=== PATIENT | female | born 1955 | race Caucasian/White ===

== ENCOUNTER 2016-12-04 10:26 | Inpatient (IN) | payer MEDICARE ==
--- NOTE | ~2016-12-04 | PREOPHP ---
PreOp History and Physical [address] [place]. [address] NAME: MAYRA PIERCE : 59 STATUS : DIS IN PAT#: [id number] AGE: 61 ADM/REG DATE : 12/04/16 MR#: [id number] REPORT SERV DATE: 12/15/16 DICTATED BY: TRISTAN BUCK DATE: 12/15/16 REPORT STATUS : Draft TRANSCRIBED BY: SHIRLEY DATE: 12/15/16 CHIEF COMPLAINT: Right hip pain. HISTORY: This is a 61-year-old female, said she caught her left foot, tripped and injured her right hip. She denies pain or injury elsewhere. No associated loss of consciousness, shortness of breath, chest pain, etc. ALLERGIES: PENTAZOCINE, NITROFURANTOIN, AMBIEN, PENICILLIN, SULFA, DOXYCYCLINE, ERYTHROMYCIN. MEDICATIONS: See chart. PAST MEDICAL HISTORY: Migraines, hearing loss, dysrhythmias, hiatal hernia, menopause, depression, arthritis, fibromyalgia, osteoporosis, asthma, history of MVP, murmur. PAST SURGICAL HISTORY: Pacemaker at [place], right ear tube in 1999, left nasal surgery x2 in the , right carpal tunnel x2 in the , tonsils and adenoids at age 32, right breast biopsy in the . SOCIAL HISTORY: No cigarettes, alcohol, or illicit drug use. FAMILY HISTORY: No anesthetic complications. REVIEW OF SYSTEMS: Otherwise negative. PHYSICAL EXAMINATION: GENERAL: Alert and oriented x3, in no apparent distress. HEENT: Atraumatic, normocephalic. NECK: Supple. CHEST: Symmetric, nontender. LUNGS: Per AA evaluation. CV: Regular. ABDOMEN: Soft. No mass. EXTREMITIES: Decreased range of motion. Shortened and externally rotated right hip. Skin is intact. Compartment supple. 2+ pulses. NEURO: Sensorimotor without deficit. X-RAY: Displaced right femoral neck fracture with comminution. ASSESSMENT: Right femoral neck fracture, comminuted and varus displaced. PLAN: Right total hip arthroplasty. Risks, benefits, etc. explained. The patient wishes to proceed. PreOp History and Physical [address] [address] NAME: MAYRA PIERCE : 59 STATUS : DIS IN PAT#: [id number] AGE: 61 ADM/REG DATE : 12/04/16 MR#: [id number] REPORT SERV DATE: 12/15/16 DICTATED BY: TRISTAN BUCK DATE: 12/15/16 REPORT STATUS : Draft TRANSCRIBED BY: SHIRLEY DATE: 12/15/16 WTB/MODL Tanya Buck M.D. / [id number] CC: Hemant Breen M.D.
--- NOTE | ~2016-12-04 | DS ---
Discharge Summary [place] [id number] [facility] [place]. [address] NAME: MAYRA PIERCE : 59 STATUS : DIS IN [facility]#: [id number] AGE: 61 ADM/REG DATE : 12/04/16 MR#: [id number] REPORT SERV DATE: 12/16/16 DICTATED BY: TRISTAN BUCK DATE: 12/15/16 REPORT STATUS : Draft TRANSCRIBED BY: MODL DATE: 12/15/16 ADMISSION DATE: 12/04/2016 DISCHARGE DATE: 12/08/2016 DIAGNOSIS: Right hip displaced femoral neck fracture. HOSPITAL COURSE: The patient tolerated the procedure well. Was admitted by the myself and the [employer]ING [employer] AD[employer]ER. She progressed in physical therapy to become independent. She was asymptomatic with her postoperative anemia. She became independent with physical therapy and was discharged home with home health. DISPOSITION: Home. DISCHARGE DIET: General. FOLLOWUP: Follow up in 2 weeks. ACTIVITY: Weight bearing as tolerated. WTB/MODL Tanya Buck M.D. / [id number] CC: Hemant Breen M.D.
--- NOTE | ~2016-12-04 | OP ---
Record Of Operation [facility] [address] [place]. [address] NAME: MAYRA PIERCE : 59 STATUS : ADM IN PAT#: [id number] AGE: 61 ADM/REG DATE : 12/04/16 MR#: [id number] REPORT SERV DATE: 12/05/16 DICTATED BY: TRISTAN BUCK DATE: 12/04/16 REPORT STATUS : Draft TRANSCRIBED BY: MODL DATE: 12/04/16 DATE OF PROCEDURE: 12/04/2016 PREOPERATIVE DIAGNOSIS: Severe right hip degenerative joint disease. POSTOPERATIVE DIAGNOSIS: Severe right hip degenerative joint disease. PROCEDURE: Uncemented total hip arthroplasty, Tri-Lock. SIDE: Right. ANESTHESIA: See chart. SIZE: See chart. ESTIMATED BLOOD LOSS: About 100 mL. PROCEDURE: The patient was taken to the operating room and placed supine on the table without incident. Anesthetic was induced per the anesthesiologist. A Francis catheter was placed by the nurse in the standard sterile technique. The correct side for the procedure was identified by preoperative markings and matched with the consent form. All personnel in the room were in agreement regarding the procedure, patient, and side. The patient was then carefully positioned and carefully padded and prepped and draped in the normal sterile fashion. The patient received prophylactic preoperative antibiotics at the appropriate time. The preoperative x-ray was brought up on the monitor. Again, this was reviewed with the staff in the room. According with the preoperative plan, and angled, an anterolateral incision was made centered over the trochanter extending from proximal posterior to distal anterior. Electrocautery was used to maintain meticulous hemostasis. The IT band was split in line with its fibers. A Charnley retractor was placed over saline moistened laps. A standard anterolateral approach to the hip was carried out dissecting in line with the vastus medialis fibers lifting the inferior 20% of the vastus medialis, proximally the interior 20% of the gluteus medius and gluteus minimus tendons off the anterior capsule. Periosteal elevator was used to elevate soft tissue gently directly off the proximal anterior femoral bone. Appropriate retractors were carefully placed. Complete anterior capsulectomy was performed. The hip was then carefully dislocated with a combination of traction maneuver by the emergency medicine physician assistant and scooping the ball out of the socket with a Hohmann. A femoral neck osteotomy was marked according to what had been preoperatively planned with a broach as a template. The distance for the femoral neck osteotomy was measured with a ruler. A femoral neck osteotomy was made with an oscillating saw under appropriate retraction. Meticulous hemostasis was again obtained. The leg was then brought up out of the anterior bag and positioned with the lower extremity in external rotation and slight flexion. Acetabular retractors were placed carefully palpating to be sure that they were directly on the bone. The acetabular labrum was excised with electrocautery and rongeur. Pulvinar fat was removed with a large curette and rongeur and again meticulous hemostasis was obtained. Sequential Record Of Operation [facility] [address] [place]. [address] NAME: MAYRA PIERCE : 59 STATUS : ADM IN [facility]#: [id number] AGE: 61 ADM/REG DATE : 12/04/16 MR#: [id number] REPORT SERV DATE: 12/05/16 DICTATED BY: TRISTAN BUCK DATE: 12/04/16 REPORT STATUS : Draft TRANSCRIBED BY: SHIRLEY DATE: 12/04/16 reamers were used in the acetabulum to 1 mm. less than the final size which was chosen. This was felt to give excellent interference fit. The acetabular fossa was then copiously irrigated with pulsatile lavage and actual acetabular component was placed and impacted and checked to make sure it was down snug. The overall alignment was checked. The acetabular spinning frame changer was then removed. Screws were placed in the standard fashion. A drill, depth gauge and self tapping screw placement taking care not to plunge as the drill holes were carefully placed. A trial liner was then placed and attention directed back to the proximal femur. The leg was placed back into the anterior bag. The proximal femur was prepared using a box chisel following by a T-handled reamer to determine the intramedullary alignment. This was followed by sequential broaches up to the final broach. Once it was seated in the appropriate position, a Calcar reamer was used to plane the proximal femur. Trial reduction was then done with a trial prosthetic ball and neck. A straight edge was used to compare the tip of the trochanter to center of the ball relationship to what had been noted on the preoperative x-ray. Careful reduction was then done of the total hip. Palpation was done to ascertain and compare leg lengths by palpating the nonoperative leg and also by checking soft tissue tension. The stability of the hip was checked in full extension with full external rotation and in full flexion with adduction, flexion and internal rotation. The hip was then redislocated with a bone hook. The femoral trial and femoral broach were removed. The acetabulum was then prepared under appropriate retraction by removing the trial liner. A central hole eliminator was placed and tightened. The shell was irrigated out. The actual insert was placed and impacted and then checked to be sure it was down snug with a joker. The leg was again positioned in the bag. The proximal femur exposed, irrigated and the actual thermal prosthesis was taken from the motor vehicle representative and impacted. Once it was down, the trunnion was cleansed with a wet and dry lap and the prosthetic thermal head was placed and impacted and checked to be sure it was down snug. The acetabulum was irrigated and reduction was obtained. Again, we checked soft tissue tension, leg length and stability as described above. The hip was closed in a layered fashion with a 5 mm. Mersilene tape placed through a single drill hole in the proximal anterior/superior trochanter reattaching the gluteus medius and minimus fibers. The vastus lateralis, gluteus medius, and gluteus minimus were then closed in a sleeve. Drain was placed between the vastus and the IT band exiting distally anteriorly. The IT band was closed. Subcutaneous closure and skin closure were then obtained. A sterile dressing was applied. The patient was carefully positioned into a supine position and then awakened. The patient was then carefully transferred to the stretcher to be returned to the postoperative care unit without incident. COMPLICATION: None. SPECIMENS: Right femoral head. WTB/MODL Tanya Busby Record Of Operation [facility] [address] [place]. [address] NAME: MAYRA PIERCE : 59 STATUS : ADM IN [facility]#: [id number] AGE: 61 ADM/REG DATE : 12/04/16 MR#: [id number] REPORT SERV DATE: 12/05/16 DICTATED BY: TRISTAN BUCK DATE: 12/04/16 REPORT STATUS : Draft TRANSCRIBED BY: AARONL DATE: 12/04/16 Hemant Buck / [id number] CC: Hemant Breen M.D.
[~2016-12-04 10:26] MED LIST: ADVAIR250 INH; ALLEGRA; CLARIT10 PO; COMBIVENT INH; DITRO5 PO; HARD NAILS OR; LORTAB10 PO; MAGOX4 PO; OS500+D PO; OSTEO BI FLEX PO; PREV30 PO; PROAIR HFA INH; PROZAC40 MG PO; TRAZ100 PO; VITAMIN D31000 UNIT PO; VITC500 PO; ZANAFLEX 4 MG TA4 MG PO
[2016-12-04 10:59] LABS: BASOPHILS 0.4 %; BASOPHILS ABSOLUTE 0.02 10/3/uL (0.0-0.16); EOSINOPHILS 1.5 %; EOSINOPHILS ABSOLUTE 0.08 10/3/uL (0.0-0.53); ER CBC TAT 0 Hrs 05 Mins; HEMOGLOBIN 12.3 g/dL (12.0-16.0); IMMATURE GRANULOCYTES 0.4 %; IMMATURE GRANULOCYTES ABSOLUTE 0.02 10/3/uL (0.0-0.11); LYMPHOCYTES 18.2 %; LYMPHOCYTES ABSOLUTE 0.98 10/3/uL (0.67-4.30); MANUAL DIFF NO %; MEAN CORPUS HGB CONC 33.2 g/dL (32.0-36.0); MEAN CORPUSCULAR HEMOGLOB 31.7 pg (26.0-34.0); MEAN CORPUSCULAR VOLUME 95.4 fL (80-100); MEAN PLATELET VOLUME 10.5 fL (9.2-13.0); MONOCYTES 6.7 %; MONOCYTES ABSOLUTE 0.36 10/3/uL (0.21-1.20); NEUTROPHILS 72.8 %; NEUTROPHILS ABSOLUTE 3.93 10/3/uL (2.02-8.40); PLATELET COUNT 182 10/3/uL (150-400); RBC DISTRIBUTION WIDTH 12.6 % (12.0-16.0); RED CELL COUNT 3.88 10/6/uL (4.0-5.6); WHITE BLOOD CELLS 5.4 10/3/uL (4.5-10.5)
[2016-12-04 11:06] LABS: PARTIAL THROMBO TIME 25.7 SEC (22.5-37.2); PROTIME (NOT ORD) 13.1 SEC (12.0-14.5)
[2016-12-04 11:10] LABS: CALCIUM, SERUM 8.6 MG/DL (8.5-10.4); CHLORIDE, SERUM 108 MMOL/L (96-112); CO2 (CARBON DIOXIDE) 28 MMOL/L (24-34); CREATININE 1.04 MG/DL (0.55-1.02); GFR AFRICAN AMERICAN 68 ML/MIN (>=60); GFR NON AFRICAN AMERICAN 59 ML/MIN (>=60); GLUCOSE, SERUM 75 MG/DL (60-99); POTASSIUM, SERUM 4.2 MMOL/L (3.5-5.3); SODIUM, SERUM 143 MMOL/L (135-148)
[2016-12-04 11:12] LABS: BUN (BLOOD UREA NITROGEN) 23 MG/DL (6-23)
[2016-12-04] MEDS ORDERED: [UNRECOGNIZED DRUG - REMARK] PO (11:33)
[2016-12-04] MEDS ORDERED: VITAMIN D2000 UNIT PO (11:33)
[2016-12-04] MEDS ORDERED: BOTOX100 UNIT IM (11:34)
[2016-12-04] MEDS ORDERED: SINGULAIR1 PO (11:34)
[2016-12-04] MEDS ORDERED: AMIT10 PO (11:35)
[2016-12-04] MEDS ORDERED: ZANAFLEX 4 MG TA4 MG PO (11:35)
[2016-12-04] MEDS ORDERED: DITRO5 PO (11:35)
[2016-12-04] MEDS ORDERED: TRAZ100 PO (11:35)
[2016-12-04] MEDS ORDERED: NORCO1 TAB PO (11:36)
[2016-12-04] MEDS ORDERED: PEPCID40 MG PO (11:36)
[2016-12-04] MEDS ORDERED: PROZAC PO (11:36)
[2016-12-04] MEDS ORDERED: ADVAIR INH (11:37)
[2016-12-04] MEDS ORDERED: COMBIVENT RESPIM4 GM INH (11:37)
[2016-12-04 12:10] LABS: ASCORBIC ACID (UR NOT ORDER) NEG (NEG); BILIRUBIN, URINE NEGATIVE (NEG); ER URINALYSIS TAT 0 Hrs 11 Mins; KETONE, URINE NEGATIVE (NEG); LEUKOCYTE ESTERASE(NOT OR NEG (NEG); NITRITE (URINE) NEG (NEG); WBC (NOT ORDERED) (RFLEX) < 1 (0-5)
[2016-12-05 05:58] LABS: HEMOGLOBIN 9.9 g/dL (12.0-16.0)
[2016-12-05 05:59] LABS: HEMATOCRIT 29.7 % (36.0-48.0)
[2016-12-05 06:07] LABS: INTERNATIONAL NORMAL RATI 1.2 UNITS (-); PROTIME (NOT ORD) 15.1 SEC (12.0-14.5)
[2016-12-05 06:15] LABS: CALCIUM, SERUM 8.3 MG/DL (8.5-10.4); CHLORIDE, SERUM 105 MMOL/L (96-112); CO2 (CARBON DIOXIDE) 27 MMOL/L (24-34); CREATININE 0.96 MG/DL (0.55-1.02); GFR AFRICAN AMERICAN 75 ML/MIN (>=60); GFR NON AFRICAN AMERICAN 65 ML/MIN (>=60); POTASSIUM, SERUM 4.6 MMOL/L (3.5-5.3); SODIUM, SERUM 141 MMOL/L (135-148)
[2016-12-05 06:16] LABS: BUN (BLOOD UREA NITROGEN) 15 MG/DL (6-23); GLUCOSE, SERUM 136 MG/DL (60-99)
[2016-12-06 05:34] LABS: HEMATOCRIT 28.1 % (36.0-48.0); HEMOGLOBIN 9.3 g/dL (12.0-16.0)
[2016-12-06 05:35] LABS: INTERNATIONAL NORMAL RATI 2.5 UNITS (-)
[2016-12-06 05:37] LABS: PROTIME (NOT ORD) 27.1 SEC (12.0-14.5)
[2016-12-07 05:04] LABS: HEMOGLOBIN 8.3 g/dL (12.0-16.0)
[2016-12-07 05:12] LABS: HEMATOCRIT 25.2 % (36.0-48.0)
[2016-12-07 05:26] LABS: INTERNATIONAL NORMAL RATI 2.8 UNITS (-); PROTIME (NOT ORD) 29.1 SEC (12.0-14.5)
[2016-12-08 05:13] LABS: INTERNATIONAL NORMAL RATI 2.5 UNITS (-); PROTIME (NOT ORD) 26.4 SEC (12.0-14.5)
[2016-12-08] MEDS ORDERED: NORCO1 TA1 PO (07:59)
[2016-12-08] MEDS ORDERED: C2 PO (07:59)
== END 2016-12-08 17:52 | disposition home or self-care (01) | DRG 470 ==
LOC: ER 10:26 → 3SO 12:48
PROVIDERS: Nurse Practitioner; Specialist
PROC: 30233N0 Transfusion of Autologous Red Blood Cells into Peripheral Vein, Percutaneous Approach (ICD-10-PCS; 2016-12-04)
PROC: 0SR902A Replacement of Right Hip Joint with Metal on Polyethylene Synthetic Substitute, Uncemented, Open Approach (ICD-10-PCS; principal; 2016-12-04 20:15)
DX: M16.11 Unilateral primary osteoarthritis, right hip (principal); D62 Acute posthemorrhagic anemia; J45.909 Unspecified asthma, uncomplicated; K21.9 Gastro-esophageal reflux disease without esophagitis; F32.9 Major depressive disorder, single episode, unspecified
CPT/HCPCS: 36415; 71010; 72170; 73502-RT; 80048; 81001; 85014; 85018; 85025; 85610; 85730; 86850; 86900; 86901; 87641; 88305; 88311; 88341; 88342; 94640; 96374; 96375; 96376; 97110-GP; 97116-GP; 97163-GP; 97165-GO; 97535-GO; 99285; A9270-GY; C1713; C1776; G8978-CK-GP; G8979-CJ-GP; J0690; J1170; J1885; J2175; J2250; J2274; J2370; J2405; J2710; J2795; J3010